=== PATIENT | male | born 1985 | race African-American/Black ===

== ENCOUNTER 2017-02-09 15:50 | Emergency (ER) | payer MEDICAID ==
[~2017-02-09] VITALS: Ht 185.4 cm; Wt 72.0 kg
[2017-02-09 16:49] VITALS: BP 118/77
== END 2017-02-09 16:34 | disposition left against medical advice (07) ==
LOC: ER 16:24
DX: Z53.21 Procedure and treatment not carried out due to patient leaving prior to being seen by health care provider (principal)